=== PATIENT | female | born 1940 | race Caucasian/White ===

== ENCOUNTER 2021-04-21 06:53 | Day surgery (SDC) | payer OTHER ==
[~2021-04-21] VITALS: Ht 157.5 cm; Wt 77.1 kg
[2021-04-21] MEDS ORDERED: CEFAZOLIN SOD 2 GM in D5W 50 ML IV ONE (08:00)
[2021-04-21] MEDS ORDERED: BUPIVACAINE LIPOSOME/PF 266 MG/20 ML VIAL INFIL ONE (08:33)
[2021-04-21] MEDS ORDERED: HYDROmorphone 1 MG/ML INJ. CARTRIDGE IVP PRN ×2 (09:45)
[2021-04-21] MEDS ORDERED: ONDANSETRON HCL 4 MG/2 ML VIAL IVP PRN (09:45)
[2021-04-21] MEDS ORDERED: DESFLURANE 15 MIN GAS INH ONE (10:56)
[2021-04-21] MEDS ORDERED: ROCURONIUM BROMIDE 10 MG/ML (ZEMURON) ONE (10:56)
[2021-04-21] MEDS ORDERED: SUCCINYLCHOLINE CHLORIDE 20 MG/ML(QUELICIN) ONE (10:56)
[2021-04-21] MEDS ORDERED: BUPIVACAINE /PF 0.25% 30 ML VIAL INJ ONE (10:56)
[2021-04-21] MEDS ORDERED: METOCLOPRAMIDE HCL 10 MG/2 ML VIAL ONE (10:56)
[2021-04-21] MEDS ORDERED: fentaNYL CITRATE/PF 100 MCG/2 ML AMP ONE (10:56)
[2021-04-21] MEDS ORDERED: DEXAMETHASONE SOD PHOSPHATE 4 MG/ML VIAL ONE (10:56)
[2021-04-21] MEDS ORDERED: NS IRRIG SOLN 1000 ML IR ONE (10:56)
[2021-04-21] MEDS ORDERED: KETOROLAC TROMETHAMINE 30 MG VIAL ONE (10:56)
[2021-04-21] MEDS ORDERED: ONDANSETRON HCL 4 MG/2 ML VIAL ONE (10:56)
[2021-04-21] MEDS ORDERED: SUGAMMADEX SODIUM 200 MG/2 ML VIAL IV ONE (10:56)
[2021-04-21] MEDS ORDERED: PROPOFOL 200MG/ 20ML VIAL (DIPRIVAN) IV ONE (10:56)
[2021-04-21] MEDS ORDERED: LR 1,000 ML IV.SOLN IV ONE (10:56)
[2021-04-21 13:58] VITALS: BP_SYST 137
== END 2021-04-21 13:35 | disposition home or self-care (01) ==
LOC: SDS 06:53 → SMU 06:54 → SDS 13:35
PROVIDERS: ATTEND Surgery
DX: K42.0 Umbilical hernia with obstruction, without gangrene (principal); E11.9 Type 2 diabetes mellitus without complications; I10 Essential (primary) hypertension; Z88.0 Allergy status to penicillin; E78.00 Pure hypercholesterolemia, unspecified; M19.90 Unspecified osteoarthritis, unspecified site; Z86.73 Personal history of transient ischemic attack (TIA), and cerebral infarction without residual deficits; Z79.899 Other long term (current) drug therapy; Z20.822 Contact with and (suspected) exposure to COVID-19
CPT/HCPCS: 36415; 49587; 82948; 82962; 87426; 88302; C1781; C9290; J0330; J0690; J1100; J1885; J2405; J2704; J2765; J3010; J3490 ×2; J7060; J7120; U0003